=== PATIENT | female | born 1950 ===

== ENCOUNTER 2017-07-18 15:23 | Inpatient (IN) | payer OTHER ==
[~2017-07-18] VITALS: Ht 165.1 cm; Wt 106.6 kg
--- NOTE | ~2017-07-18 | DS ---
Unit #: [id number] #: [id number] Patient: BRYANT CONN [id number] [address] [place], [place] [address] [id number] MR#: [id number] NAME: BRYANT CONN ROOM: 47 Age: 67 Sex: F Admission Date: 07/18/2017 : 1950 Discharge Date: 07/24/2017 Attending Physician: Maury Oseguera M.D. DISCHARGE SUMMARY ADMITTING PHYSICIAN Dr. Chava Oseguera DISCHARGING PHYSICIAN Dr. César Washburn ADMITTING DIAGNOSIS Bilateral ankle fractures. DISCHARGE DIAGNOSIS Bilateral ankle fractures. CONSULTATIONS Hospitalist group. PROCEDURES Open reduction internal fixation right ankle. COMPLICATIONS None. HISTORY Patient is a 67-year-old female who presented to [facility] with bilateral ankle fractures and, due to inability to ambulate, was transferred to [facility] for orthopedic consultation and further treatment. HOSPITAL COURSE Patient was admitted to the hospital and the following day underwent open reduction internal fixation of the right ankle which she tolerated well. Postoperatively, patient's left ankle splint was changed to a walking boot and patient was made weight bearing as tolerated on the left. Patient was able to slowly begin to ambulate on the left. However, she did have significant pain and it was felt that she would be best served at a subacute rehab facility until she is able to better ambulate. Patient also had some postoperative constipation which resolved on postoperative day 3 and by the time of discharge patient's pain was well controlled with oral pain medication. She was tolerating a regular diet and was voiding without difficulty. DIET Diabetic. WEIGHT BEARING STATUS Unit #: [id number] #: [id number] Patient: BRYANT CONN Patient is weight bearing as tolerated on the left lower extremity in the boot which she may remove in bed and is non-weight bearing on the right lower extremity. DISPOSITION Patient is being discharged to subacute rehab facility. SPECIAL INSTRUCTIONS Patient is to keep the right lower extremity splint clean and dry. FOLLOWUP Patient is to follow up in my office on 08/02/2017 for cast change. DISCHARGE MEDICATIONS Include: 1. Acetaminophen 1000 mg p.o. every 8 hours. 2. Fluticasone spray 50 mg per spray, 2 sprays in each naris daily. 3. Xarelto 10 mg p.o. daily. 4. Amitriptyline 50 mg p.o. at bedtime. 5. Cetirizine 10 mg p.o. daily. 6. Atorvastatin 20 mg p.o. at bedtime. 7. Metoprolol 50 mg p.o. every 12 hours. 8. Lisinopril 10 mg p.o. daily. 9. Aspirin 81 mg p.o. daily. 10. Singulair 10 mg p.o. daily. 11. Oxycodone 5 mg, 1 tablet every 4-6 hours as needed for pain. 12. Invokana 300 mg p.o. daily. 13. Glipizide 10 mg p.o. b.i.d. 14. Celebrex 200 mg p.o. daily. 15. Levothyroxine 50 mcg p.o. daily. 16. Vitamin D3 2000 units daily. Dictated by... Shauna Gallegos TD: 07/24/2017 12:10 JOB #: [id number] DISCHARGE SUMMARY Page 1 of 1 X X DISCHARGE SUMMARY
--- NOTE | ~2017-07-18 | OR ---
Unit #: [id number] #: [id number] Patient: BRYANT CONN [id number] [address] [place], [place] [address] [id number] I MR#: [id number] NAME: BRYANT CONN ROOM: 47 Date of Procedure: 07/19/2017 Admission Date: 07/18/2017 Surgeon: César Washburn M.D. : 1950 Attending Physician: Maury Oseguera M.D. OPERATIVE REPORT SERVICE Orthopedic Surgery. PREOPERATIVE DIAGNOSIS Right ankle fracture. POSTOPERATIVE DIAGNOSIS Right trimalleolar ankle fracture. PROCEDURE PERFORMED Open reduction and internal fixation, right ankle fracture. ANESTHESIA Regional (popliteal and adductor canal blocks) with general. ESTIMATED BLOOD LOSS 50 mL. IMPLANTS [place] VariAx titanium distal fibula locking plate with locking and cortical screws as well as two 4-mm partially threaded [place] cannulated screws. SPECIMENS None. COMPLICATIONS None. ASSISTANTS None. INDICATIONS FOR PROCEDURE The patient is a 67-year-old female who tripped over a curb yesterday and was brought to [facility] Emergency Department where she was found to have a left Carter A ankle fracture as well as a right bimalleolar ankle fracture. After discussion with the patient, it was determined the best course of action would be operative treatment for the right ankle fracture. All risks, benefits, and alternatives to the procedure including, but not limited to, bleeding, infection, blood clot, damage to neurovascular structure, nonunion, malunion, need for further surgery as Unit #: [id number] #: [id number] Patient: BRYANT CONN well as anesthetic risks including, but not limited to loss of life or loss of limb. Despite these risks, the patient did agree to proceed with surgery. DESCRIPTION OF PROCEDURE After informed consent was obtained and the correct right operative site was marked in the preoperative area, the patient underwent the regional anesthetic block and was brought to the operative suite and placed on a radiolucent OR table in the supine position. Anesthesia was then induced, and the splint on the right side was removed, and the right lower extremity was prepped and draped in the standard sterile fashion. Surgical time-out was completed, and the patient did receive preoperative antibiotics per protocol. After exsanguinating the right lower extremity with an Esmarch bandage, tourniquet was inflated to 300 mmHg, and then an incision was made over the lateral aspect of the fibula through skin with knife and then carried through subcutaneous tissue with Bovie electrocautery and with scissor dissection. The fracture was exposed, and it was found that the margins of fracture extended beyond the current incision, so the incision was widened, and using a periosteal elevator, the fibula was exposed. At this point, fracture reduction clamps were used to provisionally reduce the fracture which was then pinned with a K-wire. Once the fibula was provisionally reduced, attention was turned to the medial side where a slightly curvilinear anterior incision was made over the medial malleolus. The saphenous vein and nerve were identified and protected and retracted anteriorly. The medial malleolus and fracture were identified, and the posterior tibial tendon was identified and protected posteriorly. At this point, a pointed reduction clamp was used to reduce and compress the medial malleolar fracture, and 2 threaded K-wires used as guidewires for later screws were placed using C-arm fluoroscopy for guidance. With the ankle adequately reduced, attention was again turned to the lateral side, and the appropriate length fibular plate was clamped to the bone using fracture reduction clamps to both reduce the fracture and hold the plate in place along with K-wires through the plate. After verification that the reduction was still adequate using C-arm fluoroscopy, a single cortical screw was placed into the plate proximally, and then locking screws were used to fill the distal portion of the plate as well as 2 more locking screws proximally fixating the fracture in a bridge plating mode. Once the fracture was felt to be adequately fixated, fracture reduction clamps and provisional K-wires were removed, and C-arm fluoroscopy shots were taken which demonstrated adequate reduction and maintenance of the ankle mortise. However, the anterior fibula where the syndesmotic ligaments attached were significantly comminuted and given that the patient is diabetic, there was concern for possible ligamentous instability. Therefore, 3 syndesmotic screws using 3.5 cortical screws were placed through the plate in a quad-cortical fashion, and again position was verified using C-arm fluoroscopy. It should be noted that before placing the screws, a large periarticular reduction clamp was used to clamp the medial tibia to the fibula through the plate and thus ensured syndesmotic reduction. At this point, final C-arm fluoroscopy images were saved, and then wounds were copiously irrigated with normal saline and closed in a layered fashion using Vicryl suture deep and nylon suture for the skin. Tourniquet was released before final closure of the skin, and adequate hemostasis was achieved. Final tourniquet time was 105 minutes. After sterile dressings were placed, a well-padded AO type posterior slab with stirrup splint was made from plaster, and the patient's ankle was held in neutral position until the plaster set. At this point, the Unit #: [id number] #: [id number] Patient: BRYANT CONN patient was awoken from general anesthesia having tolerated the procedure well and was taken to PACU where she was later returned to the floor in good condition. At the end of the procedure, all sponge, needle, and instrument counts were correct x2. I was present for the entire procedure. ADDENDUM Of note, intraoperatively it was noted that the patient did have a posterior malleolar fracture component to this fracture making it a bimalleolar fracture. After reduction of the fibula and the medial malleolus, it was noted that this fragment reduced well and was both essentially nonarticular and minimally displaced at the completion of the medial and lateral malleolus reductions. Therefore it was felt that with strong syndesmotic fixation from the 3 screws and essentially a non-articulating fracture fragment, the fixation of this posterior malleolus fragment was not necessary. /modl TD: 07/20/2017 14:38 JOB #: [id number] Dictated by.Golden. Shauna Gallegos/modl TD: 07/20/2017 15:27 JOB #: [id number] OPERATIVE REPORT Page 1 of 1 X X PROCEDURE OPERATIVE NOTE
--- NOTE | ~2017-07-18 | CO ---
Unit #: [id number] #: [id number] Patient: BRYANT SHAHID [id number] [address] [place], [place] [address] [id number] MR#: [id number] NAME: BRYANT SHAHID ROOM: 47 Age: 67 Sex: F Admission Date: 07/18/2017 : 1950 Attending Physician: Maury Oseguera M.D. Requesting Physician: Maury Oseguera M.D. Consultation Date: 07/18/2017 CONSULTATION REPORT REASON FOR CONSULT Reason for consult is medical management. HISTORY This pleasant 67-year-old female with type 2 diabetes mellitus, hypertension, asthma, was transferred from [facility] emergency department for bilateral ankle fractures. This morning the patient stepped on pavement and there was a hole in the pavement. She fell and developed bilateral ankle pain. She was taken to [facility] emergency department where she was found to have bilateral ankle fractures, worse on the right. She was therefore sent to this facility for further treatment. Unfortunately none of the ER records have been sent as of yet, and I have asked for them to be faxed. Patient denies history of heart disease, no exertional chest pain. PAST MEDICAL HISTORY 1. AODM x5 years. 2. Hyperlipidemia. 3. Hypertension. 4. Asthma. 5. Seasonal allergies. 6. Hypothyroidism. 7. Migraine headaches. 8. DAYSI and BSO following an abnormal Pap smear. 9. BTL. ALLERGIES To Januvia. HOME MEDICATIONS 1. Metformin 500 mg b.i.d. 2. Vitamin D. 3. Zyrtec 10 mg daily. 4. Aspirin 81 mg daily. 5. Invokana 300 mg daily. 6. Glipizide 10 mg b.i.d. 7. Elavil 50 mg q.h.s. for migraines. 8. Singulair 10 mg daily. 9. Synthroid 0.05 mg daily. 10. Lisinopril 10 mg daily. 11. Lipitor 20 mg daily. Unit #: [id number] #: [id number] Patient: BRYANT SHAHID 12. Lopressor 50 mg b.i.d. 13. ProAir inhaler as needed. FAMILY HISTORY Positive for CAD. SOCIAL HISTORY The patient lives with her hljwgsn-[id number] and sister. She is a lifelong nonsmoker, drinks occasional alcohol. REVIEW OF SYSTEMS Review of systems notable for fall with bilateral ankle pain, diabetes, hypertension, hyperlipidemia, asthma, seasonal allergies, hypothyroidism, migraine headaches and abovementioned surgeries. All other systems were reviewed and are otherwise negative. PHYSICAL EXAMINATION GENERAL: Very pleasant, mildly obese 67-year-old female currently in no acute distress. VITAL SIGNS: Again I have no records as of yet from [facility] and vital signs have not yet been obtained in out hospital as the patient just showed up on the floor. I will review these vital signs shortly. HEENT: Eyes PERRLA, extraocular muscles are intact. Pharynx is benign. NECK: Supple, without adenopathy or thyromegaly. CHEST: Clear. CARDIAC: Normal S1 and S2, without S3, S4 or murmur. ABDOMEN: Bowel sounds are present. No hepatosplenomegaly, tenderness or masses. EXTREMITIES: Patient has bilateral lower extremity splints. . NEUROLOGIC EXAM: Patient is awake, alert, oriented. Cranial nerves are intact. Equal strength throughout; she has equal strength throughout. DIAGNOSTIC STUDIES LABS: Again I do not have records from [facility] and I am awaiting these to be faxed to me. IMAGING: X-rays demonstrate a bilateral malleolar fracture on the right and fracture of the left distal tip of the tibia on the left. ASSESSMENT 1. Right ankle fracture following a fall which will require surgery. Patient also has a left distal tibial tip fracture and CAM boot is planned. 2. Essential hypertension. 3. Adult-onset diabetes mellitus. 4. Hypothyroidism. 5. Migraine headaches. 6. Stable asthma. PLANS 1. Sliding-scale insulin, hold all oral hypoglycemics. 2. Obtain urinalysis. 3. Patient states that she has difficulty urinating right now and will place a Shahid catheter. 4. Await labs and EKG. 5. Await faxed records from [facility] ER. Unit #: [id number] #: [id number] Patient: BRYANT SHAHID Thank you very much for this consult. Dictated by... Milla Sr M.D. AML/cf TD: 07/18/2017 21:04 JOB #: [id number] CONSULTATION REPORT Page 1 of 1 X Milla Sr MD CONSULTATION REPORT
--- NOTE | ~2017-07-18 | CR21 ---
[facility] A Service of [facility] RADIOLOGY TEXT RESULTS PATIENT: BRYANT CONN LOCATION: [facility]11-18 : [birth year] UNIT #: [id number] AGE: [address]: Margie Oseguera MD SEX: F ORDER DR: [id number] [facility] [address] [place], [place] [address] [id number] I MR#: [id number] Acc #: [id number] NAME: BRYANT CONN : 1950 SEX: F STUDY DATE/TIME: 07/19/2017 12:53 UNIT: [facility] ROOM: [facility] STUDY DESCRIPTION: CR Ankle Min 3 Views Rt Attending Physician: Maury Oseguera M.D. Ordering Physician: Staff Doctor Not On MEDICAL IMAGING REPORT This report is preliminary unless electronic signature is present EXAMINATION Fluoroscopy up to one hour. DATE 07/19/2017 HISTORY Right ankle ORIF. FINDINGS Three spot intraoperative fluoroscopic images were obtained during ORIF procedure of the right ankle by Dr. Washburn. Fluoroscopy time 1.32 minutes was documented. Fibular plate with multiple screws, transverse syndesmosis screws, cannulated medial malleolar screws are seen stabilizing the right ankle. Fracture sites appear in satisfactory alignment for healing. The ankle joint appears satisfactorily aligned. Question of posterior malleolus fracture, as well, without significant displacement on image one of three. Please refer to the operative report for additional findings and recommendations. Dictated by... Catherine Mora M.D. THIS IS AN ELECTRONICALLY VERIFIED REPORT Catherine Mora M.D. at 07/25/2017 8:37 AM ENID/dina TD: 07/19/2017 23:26 JOB #: [id number] [facility] A Service of [facility] RADIOLOGY TEXT RESULTS PATIENT: BRAYNT CONN LOCATION: [facility]11-18 : [birth year] UNIT #: [id number] AGE: [address]: Margie Oseguera MD SEX: F ORDER DR: MEDICAL IMAGING REPORT Page 1 of 1 COPY
--- NOTE | ~2017-07-18 | CR72 ---
[facility] A Service of [facility] RADIOLOGY TEXT RESULTS PATIENT: BRYANT CONN LOCATION: [place] [address]- : [birth year] UNIT #: [id number] AGE: [address]: Margie Oseguera MD SEX: F ORDER DR: [id number] [facility] [address] [place], [place] [address] [id number] I MR#: [id number] Acc #: [id number] NAME: BRYANT CONN : 1950 SEX: F STUDY DATE/TIME: 07/19/2017 5:44 UNIT: [facility] ROOM: [facility] [facility] STUDY DESCRIPTION: CR Chest Single View Portable Attending Physician: Maury Oseguera M.D. Ordering Physician: Maury Oseguera M.D. MEDICAL IMAGING REPORT This report is preliminary unless electronic signature is present EXAM Portable chest HISTORY Shortness of air today. Asthma. Preop surgery for bilateral ankle fractures. FINDINGS Cardiac size and pulmonary vascularity are normal. Mild right mid thoracic curve. No airspace infiltrates or effusions. Calcified granuloma in the medial right base. IMPRESSION No acute findings. No active disease. Dictated by... Waqas Butcher M.D. THIS IS AN ELECTRONICALLY VERIFIED REPORT Waqas Butcher M.D. at 07/19/2017 4:04 PM JULIO/daniel TD: 07/19/2017 08:13 JOB #: [id number] MEDICAL IMAGING REPORT Page 1 of 1 COPY
--- NOTE | ~2017-07-18 | EKG ---
PATIENT: BRYANT CONN UNIT #: [id number] Ventricular Rate: 74 BPM Atrial Rate: 74 BPM P-R Interval: 204 ms QRS Duration: 82 ms Q-T Interval: 400 ms QTC Calculation(Bezet): 444 ms P [place]: 53 degrees Calculated R [place]: 34 degrees Calculated T [place]: 60 degrees Diagnosis Line: Normal sinus rhythm Diagnosis Line: Normal ECG Diagnosis Line: No previous ECGs available Diagnosis Line: Confirmed by JOHANNA FAM MD ([id number]) on Diagnosis Line: 07/19/2017 4:46:11 PM INTERPRETING MD: MOHINDER
--- NOTE | ~2017-07-18 | HP ---
Unit #: [id number] #: [id number] Patient: BRYANT CONN [id number] [place] [address] [place], [place] [address] [id number] I MR#: [id number] NAME: BRYANT CONN ROOM: 47 Age: 67 Sex: F Admission Date: 07/18/2017 : 1950 Attending Physician: Maury Oseguera M.D. HISTORY AND PHYSICAL CHIEF COMPLAINT Bilateral ankle pain. HISTORY OF PRESENT ILLNESS The patient is a 67-year-old female who states that she was carrying a box of donuts yesterday and tripped over a small curb resulting in bilateral ankle pain. The patient was seen at [facility] ER and found to have both right and left ankle fractures. As the patient was unable to be weightbearing, it was felt that she could not be discharged home in this condition, and so she was transferred to [facility] for more definitive treatment. PAST MEDICAL HISTORY Significant for type 2 diabetes, hyperlipidemia, hyperthyroidism, hypertension, seasonal allergies. PAST SURGICAL HISTORY Significant for hysterectomy. SOCIAL HISTORY Patient denies tobacco use. She drinks approximately 6 beers per week. ALLERGIES Patient states that she is allergic to Januvia. MEDICATIONS See MAR for full list, but medications include metformin, vitamin D3, Zyrtec, aspirin, Invokana, glipizide, amitriptyline, Singulair, levothyroxine, lisinopril, atorvastatin, Metoprolol, ProAir HFA. PHYSICAL EXAM GENERAL: On exam the patient is alert and oriented x3, is in no acute distress. HEENT: Pupils equal, round, reactive to light and accommodation. Normocephalic, atraumatic. CARDIOVASCULAR: Regular rate and rhythm. RESPIRATORY: Easy work of breathing. ABDOMEN: No obvious abdominal distention or tenderness. MUSCULOSKELETAL: Patient's bilateral lower extremities are splinted. The left lower extremity demonstrates minimal swelling with tenderness to palpation over the distal fibula, and skin is intact throughout. The right lower extremity demonstrates significantly more swelling without blistering. The skin is still intact. Patient does have tenderness to palpation over the medial, lateral and anterior aspects of the ankle. Unit #: [id number] #: [id number] Patient: BRYANT CONN Patient is limited in motion secondary to the splints, but she is able to wiggle her toes and dorsiflex and plantarflex the toes without difficulty. Sensation is intact to light touch, dorsal and plantar, in the toes. Patient does have brisk capillary refills in all toes bilaterally. Compartments are soft. There is no evidence of compartment syndrome in the bilateral lower extremities. DIAGNOSTIC STUDIES IMAGING: Imaging from [facility] demonstrates a left Carter A-type distal fibular fracture with minimal displacement and no obvious disruption of the ankle mortise. The reviews of the right ankle demonstrate, what appears to be, an SER type 4 fracture with a comminuted but minimally displaced fibula fracture, as well as a minimally displaced medial malleolus fracture with no obvious disruption of the ankle mortise. No other obvious bony abnormalities noted in either the right or left ankle series. ASSESSMENT This is a 67-year-old female with diabetes and bilateral ankle fractures. PLAN 1. Plan is to stress the left ankle in the operating room to ensure that there is no further ligamentous injury; however, this would be very uncommon with a Carter type A fracture; hence, we will plan on placing the patient into a Cam walking boot, and she will be weightbearing as tolerated on this. 2. Plan for the right ankle is to go to the operating room later today and plan for open reduction and internal fixation, medial and lateral, with plate and screws. 3. Risks, benefits and alternatives to surgical treatment for the right ankle were discussed with the patient; however, given this fracture pattern and the fact that she is diabetic, there is significant concern that this would not provide optimal outcome. I did discuss with the patient in detail that, even when well controlled, diabetes does tend to lead to longer healing times and more complications with ankle fractures, and she will need to be nonweightbearing for potentially 3 months while these heal. All standard risks of surgery, including - but not limited to - bleeding, infection, need for further surgery, nonunion, malunion, as well as anesthetic risks and even the possibility of loss of limb or life, were discussed with the patient, and despite these risks, she does agree to proceed with surgical treatment. 4. Plan is to keep the patient NPO at this time, perform surgery later today. I did discuss with the patient that, as she is nonweightbearing on the right and will likely be minimal weightbearing on the left secondary to pain, that it would likely be best for her to discharge to a rehabilitation facility until she is better able to transfer (1) left leg, and she was amenable to this idea. Dictated by Shauna Gallegos/jose TD: 07/19/2017 11:08 Unit #: [id number] #: [id number] Patient: BRYANT CONN JOB #: [id number] HISTORY AND PHYSICAL Page 1 of 1 X X HISTORY AND PHYSICAL
[2017-07-18] MEDS ORDERED: METFORMIN HCL500 M1 PO (19:50)
[2017-07-18] MEDS ORDERED: VITAMIN D31000 UNIT PO (19:51)
[2017-07-18] MEDS ORDERED: ZYRTEC10 M1 PO (19:52)
[2017-07-18] MEDS ORDERED: ASPIRIN81 M2 PO (19:54)
[2017-07-18] MEDS ORDERED: INVOKANA300 MG PO (19:56)
[2017-07-18] MEDS ORDERED: GLIPIZIDE10 MG PO (19:57)
[2017-07-18] MEDS ORDERED: AMITRIPTYLINE H50 MG PO (20:00)
[2017-07-18] MEDS ORDERED: MONTELUKAST SOD10 MG PO (20:00)
[2017-07-18] MEDS ORDERED: TIROSINT50 MCG PO (20:01)
[2017-07-18] MEDS ORDERED: LISINOPRIL10 MG PO (20:02)
[2017-07-18] MEDS ORDERED: ATORVASTATIN CA20 MG PO (20:04)
[2017-07-18] MEDS ORDERED: LOPRESSOR PO (20:05)
[2017-07-19 02:30] LABS: URINE APPEARANCE CLEAR; URINE BILIRUBIN NEG (NEG); URINE BLOOD TRACE (NEG); URINE COLOR YELLOW; URINE GLUCOSE >1000 MG/DL (NEG); URINE KETONE NEG (NEG); URINE LEUKOCYTE ESTERASE NEG (NEG); URINE NITRATE NEG (NEG); URINE PROTEIN NEG (NEG); URINE SPECIFIC GRAVITY 1.038 (1.003-1.035); URINE UROBILINOGEN 0.2 MG/DL (NEG)
[2017-07-19 02:33] LABS: U HYALINE CASTS AUWI 0-2 /[LPF]; URBCS1 AUWI 0-2 /[HPF] (0-2); URINE BACTERIA AUWI NEG (NEGATIVE); URINE SQUAMOUS EPITHELIAL CELL NONE SEEN /[HPF]; UWBCS1 AUWI 0-2 (0-5)
[2017-07-19 02:36] LABS: CULTURE INDICATED? NO
[2017-07-19 03:33] LABS: HEMATOCRIT 37.3 % (35.0-45.0); HEMOGLOBIN 12.4 gm/dL (12.0-16.0); MEAN CELL VOLUME 90.3 FL (83-96); MEAN CORPUSCULAR HGB CONC 33.2 g/dL (30-36); MEAN PLATELET VOLUME 8.5 FL (6.5-11.5); RED BLOOD COUNT 4.13 X10e (3.90-5.30); RED CELL DISTRIBUTION WIDTH 14.2 % (11.0-15.5); WHITE BLOOD COUNT 7.1 X10e3 (4.0-10.5)
[2017-07-19 03:50] LABS: PROTHROMBIN TIME (PATIENT) 10.8 SECONDS (10.0-11.7)
[2017-07-19 04:09] LABS: BUN/CREATININE RATIO 18.75; CREATININE SERUM 0.8 mg/dL (0.6-1.4); GLOM FILT RATE Estimated 76.9 mL/min (>60); POTASSIUM 4.4 mmol/L (3.5-5.1)
[2017-07-20 04:11] LABS: HEMOGLOBIN 10.8 gm/dL (12.0-16.0); MEAN CELL VOLUME 90.9 FL (83-96); MEAN CORPUSCULAR HEMOGLOBIN 29.7 PG (28-34); MEAN CORPUSCULAR HGB CONC 32.6 g/dL (30-36); MEAN PLATELET VOLUME 8.3 FL (6.5-11.5); RED BLOOD COUNT 3.63 X10e (3.90-5.30); RED CELL DISTRIBUTION WIDTH 14.5 % (11.0-15.5); WHITE BLOOD COUNT 7.4 X10e3 (4.0-10.5)
[2017-07-20 04:42] LABS: BUN/CREATININE RATIO 22.5; CALCIUM SERUM 8.8 mg/dL (8.4-10.2); CREATININE SERUM 0.8 mg/dL (0.6-1.4); GLOM FILT RATE Estimated 76.9 mL/min (>60); MAGNESIUM 1.9 mg/dL (1.6-3.0); POTASSIUM 4.3 mmol/L (3.5-5.1)
[2017-07-24 06:33] LABS: URINE APPEARANCE CLEAR; URINE BILIRUBIN NEG (NEG); URINE BLOOD NEG (NEG); URINE COLOR YELLOW; URINE GLUCOSE >1000 MG/DL (NEG); URINE KETONE 1+ (NEG); URINE LEUKOCYTE ESTERASE NEG (NEG); URINE NITRATE NEG (NEG); URINE PH 6.5 (5-8); URINE PROTEIN NEG (NEG)
[2017-07-24 06:54] LABS: CULTURE INDICATED? NO
== END 2017-07-24 14:43 | DRG 494 ==
LOC: EDBD → C4C 19:41 → UNDOADMIN 19:41 → C4C 20:50
PROVIDERS: Orthopaedic Surgery
PROC: 0QSG04Z Reposition Right Tibia with Internal Fixation Device, Open Approach (ICD-10-PCS; 2017-07-19)
PROC: 0QSJ04Z Reposition Right Fibula with Internal Fixation Device, Open Approach (ICD-10-PCS; principal; 2017-07-19 12:00)
DX: S82.841A Displaced bimalleolar fracture of right lower leg, initial encounter for closed fracture (principal); I10 Essential (primary) hypertension; E11.9 Type 2 diabetes mellitus without complications; S82.302A Unspecified fracture of lower end of left tibia, initial encounter for closed fracture; W19.XXXA Unspecified fall, initial encounter; Y92.9 Unspecified place or not applicable; K59.00 Constipation, unspecified; Z79.4 Long term (current) use of insulin; E78.5 Hyperlipidemia, unspecified; J45.909 Unspecified asthma, uncomplicated; Z90.710 Acquired absence of both cervix and uterus; Z88.8 Allergy status to other drugs, medicaments and biological substances; Z82.49 Family history of ischemic heart disease and other diseases of the circulatory system; E03.9 Hypothyroidism, unspecified
CPT/HCPCS: 71010; 73610; 76001; 80048; 81003; 82947; 83735; 85027; 85610; 86850; 86900; 86901; 93005; 94640; 94760; 97110; 97116; 97161; 97530; 97535; C1713; G8978-GP; G8979-GP; G8980-GP; J0131; J0690; J1815; J1885; J2250; J2270; J2765